=== PATIENT | female | born 1945 ===

== ENCOUNTER → 2020-07-14 | Outpatient (CLI) | payer MEDICARE | END | disposition home or self-care (01) | LOC: LAB SHORT 10:40 → PLD 10:40 | DX: L60.2 Onychogryphosis (principal); B35.1 Tinea unguium | CPT/HCPCS: 88304; 88312 ==

== ENCOUNTER → 2020-11-16 | Outpatient (CLI) | payer MEDICARE | LOC: LAB 16:32 → LAB SHORT 16:32 | DX: D22.62 Melanocytic nevi of left upper limb, including shoulder (principal); D22.61 Melanocytic nevi of right upper limb, including shoulder; D22.5 Melanocytic nevi of trunk; L57.8 Other skin changes due to chronic exposure to nonionizing radiation; L85.3 Xerosis cutis; R21 Rash and other nonspecific skin eruption; Z71.89 Other specified counseling | CPT/HCPCS: 87070; 87205 ==

== ENCOUNTER → 2024-08-17 | Outpatient (CLI) | payer OTHER | LOC: LAB SHORT 15:22 → LAB 15:22 | DX: N39.0 Urinary tract infection, site not specified (principal) | CPT/HCPCS: 87077; 87086; 87186 ==